=== PATIENT | female | born 1955 | race Caucasian/White ===

== ENCOUNTER 2023-02-04 10:59 | Outpatient (OUT) | payer MEDICARE, OTHER, SELFPAY ==
--- NOTE | 2023-02-04 11:04 | XR_ITS ---
The [address] [address] Patient Name: VIOLETA GILL MRN: [id number] date: 1955 Sex: F Assigned Patient Location: [facility] Current Patient Location: [facility] Accession/Order Number: [id number] Exam Date: 02/04/2023 11:04 Report Date: 02/04/2023 16:13 At the request of: TALYA JOHANSEN Procedure: XR foot RT min 3V EXAM: XR foot RT min 3V HISTORY: RIGHT FOOT PAIN COMPARISON: 01/22/2023 TECHNIQUE: 3 views of the right foot FINDINGS: There is no acute fracture or dislocation. No aggressive bone lesion. Unchanged bunion formation and hallux valgus. There is a small heel spur. There is an os navicular. The soft tissue is unremarkable. XR/XR foot RT min 3V IMPRESSION: No acute process. Electronically authenticated by: MANDA ARMENTA Date: 02/04/2023 16:13
== END 2023-02-04 11:00 | disposition home or self-care (01) ==
LOC: RAD 11:02
PROVIDERS: Visit Provider Podiatrist Foot & Ankle Surgery
DX: M79.671 Pain in right foot (principal)
CPT/HCPCS: 73630